=== PATIENT | male | born 1965 | race Caucasian/White ===

== ENCOUNTER 2021-02-13 16:21 | Emergency (ER) | payer MEDICAID ==
[~2021-02-13] VITALS: Ht 177.8 cm; Wt 79.4 kg
--- NOTE | 2021-02-13 16:21 | NUR ---
Placed in room 7 . Placed on manager monitoring, blood pressure machine and pulse oximeter. To gown for exam. Side rails up. Report given to MEENA Loco.
--- NOTE | 2021-02-13 16:21 | NUR ---
Pt came to ER for groin pain states he has hx of hernia, states he is homeless and has had to carry his belongings with him. Pt resting in [facility], rates pain 2/, VSS, awaiting MD.
[2021-02-13 16:24] VITALS: BP_SYST 172
--- NOTE | 2021-02-13 16:30 | NUR ---
LUIS Strong at bedside examining patient.
[2021-02-13] MEDS ORDERED: hydrALAZINE HCL 20 MG/ML VIAL IVP ONE ×2 (16:45→17:45)
[2021-02-13] MEDS ORDERED: NACL 0.9% 1,000 ML IV ONE (16:45)
[2021-02-13 17:02] LABS: BILIRUBIN,URINE NEGATIVE (NEGATIVE); BLOOD, URINE 2+ (NEGATIVE); CLARITY/URINE CLEAR (CLEAR); COLOR,URINE YELLOW (YELLOW); GLUCOSE,URINE NEGATIVE (NEGATIVE); KETONES,URINE NEGATIVE (NEGATIVE); LEUKOCYTE ESTERASE ,URINE NEGATIVE (NEGATIVE); NITRITE, URINE NEGATIVE (NEGATIVE); PROTEIN URINE NEGATIVE (NEGATIVE)
[2021-02-13 17:11] LABS: BACTERIA,URINE FEW /HPF (None Seen); MUCUS,URINE None Seen /LPF (None Seen); WBC,URINE 0-3 /HPF (0-3)
[2021-02-13 17:14] LABS: BARBITURATE, URINE NEGATIVE (NEG <=200); BENZODIAZEPINE, URINE NEGATIVE (NEG <=150); CANNABINOID, URINE NEGATIVE (NEG <=50); COCAINE, URINE NEGATIVE (NEG <=150); METHAMPHETAMINES SCREEN,URINE NEGATIVE (NEG <=500); OPIATE, URINE NEGATIVE (NEG <=100); PHENCYCLIDINE SCREEN,URINE NEGATIVE (NEG <=25); UR TRICYCLIC ANTIDEPRESSANTS NEGATIVE (NEG <=300); URINE AMPHETAMINE NEGATIVE (NEG <=500); URINE METHADONE NEGATIVE (NEG <=200); URINE OXYCODONE SCREEN NEGATIVE (NEG <=100); URINE PROPOXYPHENE SCREEN NEGATIVE (NEG <=300)
[2021-02-13 17:15] LABS: ANION GAP 8 (5-15); CALCIUM 9.9 mg/dL (8.4-11.0); CHLORIDE 107 mmol/L (98-107); CREATININE 0.93 mg/dL (0.55-1.30); GLUCOSE 96 mg/dL (70-99); POTASSIUM 4.1 mmol/L (3.5-5.1); SODIUM SERUM 140 mmol/L (136-145); UREA NITROGEN, BLOOD 20 mg/dL (8-21)
[2021-02-13 17:18] LABS: BASOPHILS % (AUTO) 0.5 % (0.0-2.0); EOSINOPHILS # (AUTO) 0.1 K/uL (0.0-0.4); EOSINOPHILS % (AUTO) 0.9 % (0.0-4.0); HEMATOCRIT 45.6 % (36-54); HEMOGLOBIN 14.7 g/dL (14.0-18.0); LYMPHOCYTES # (AUTO) 1.6 K/uL (1.0-5.5); LYMPHOCYTES % (AUTO) 20.3 % (20.5-51.5); MEAN CORPUSCULAR HEMOGLOBIN 29 pg (27-31); MEAN CORPUSCULAR HGB CONC 32 % (32-36); MEAN CORPUSCULAR VOLUME 91 fL (79.0-98.0); MONOCYTES # (AUTO) 0.8 K/uL (0.0-1.0); MONOCYTES % (AUTO) 10.7 % (1.7-9.3); NEUTROPHILS # (AUTO) 5.2 K/uL (1.8-7.7); NEUTROPHILS % (AUTO) 67.6 % (40.0-70.0); PLATELET COUNT (AUTO) 147 K/uL (130-430); RED BLOOD CELL COUNT(AUTO) 4.99 MIL/uL (4.2-6.2); RED CELL DISTRIBUTION WIDTH 14.3 % (9.0-15.0); WHITE BLOOD COUNT (AUTO) 7.7 K/uL (4.8-10.8)
[2021-02-13 17:23] LABS: ALANINE AMINOTRANSFERASE 46 U/L (12-78); ALBUMIN 3.6 g/dL (3.4-4.8); ASPARTATE AMINOTRANSFERASE 31 U/L (10-37); LIPASE 171 U/L (73-393); TOTAL BILIRUBIN 0.8 mg/dL (0.0-1.0)
[2021-02-13 17:24] LABS: ALCOHOL, BLOOD < 3 mg/dL (<10); GFR AFRICAN AMERICAN 108 mL/min (>90)
[2021-02-13] MEDS ORDERED: hydrALAZINE HCL 20 MG/ML VIAL ONE (17:54)
--- NOTE | 2021-02-13 18:32 | NUR ---
Pt resting in [facility] comfortably at this time, VSS, watching movie on phone
[2021-02-13] MEDS ORDERED: ATEN-41 PO (18:57)
[2021-02-13 19:08] VITALS: BP_SYST 136
--- NOTE | 2021-02-13 19:09 | NUR ---
Patient given written and verbal discharge instructions and verbalizes understanding. Given copies of tests performed during visit. Patient is awake, alert and oriented. Ambulatory with steady gait. Refuses offer of penitentiary placement. Given list of available shelters in surrounding areas.
--- NOTE | 2021-02-13 19:09 | NUR ---
Patient given written and verbal discharge instructions and verbalizes understanding. ER MD discussed with patient the results and treatment provided. Patient in stable condition. ID arm band removed. IV catheter removed intact and dressing applied, no active bleeding. Rx of Atenolol given. Patient educated on pain management and to follow up with PMD. Pain Scale 0/10. Opportunity for questions provided and answered. Medication side effect fact sheet provided.
== END 2021-02-13 19:09 | disposition home or self-care (01) ==
LOC: SED 16:21
DX: K40.20 Bilateral inguinal hernia, without obstruction or gangrene, not specified as recurrent (principal); I10 Essential (primary) hypertension; F10.20 Alcohol dependence, uncomplicated; Y90.0 Blood alcohol level of less than 20 mg/100 ml; Z59.0 Homelessness
CPT/HCPCS: 36415; 71045; 80053; 80307; 81000; 83690; 83880; 84484; 85025; 93005; 96361; 96374; 96376; 99285; G0482; J0360; J7030

== ENCOUNTER 2021-06-03 18:08 | Emergency (ER) | payer MEDICAID, SELFPAY ==
[~2021-06-03] VITALS: Ht 180.3 cm; Wt 81.6 kg
[~2021-06-03 18:08] MED LIST: ATEN-41 PO
[2021-06-03 18:50] VITALS: BP_SYST 151
--- NOTE | 2021-06-03 18:58 | NUR ---
PLACED IN WAITING ROOM FOR AVAILABLE BED IN MAIN ED
--- NOTE | 2021-06-03 20:05 | NUR ---
Patient ambulatory to bed hallway 1 for evaluation
--- NOTE | 2021-06-03 20:16 | NUR ---
PATIENT AAOX4 AND AMBULATORY FROM HOME C/O RIGHT CHEEK ABCESS X 4\5 DAYS. SWELLING NOTED TO RIGHT CHEEK OF FACE. VSS. CURRENTLY STATING 10/10 ON THE PAIN SCALE. TOOK IBUPROFEN AT HOME WITH NO RELIEF OF PAIN.
--- NOTE | 2021-06-03 22:13 | NUR ---
DR. SINGH AT BEDSIDE FOR EVALUATION.
[2021-06-03] MEDS ORDERED: metroNIDAZOLE 500 mg/NS 100 ML IV ONE (22:30)
[2021-06-03] MEDS ORDERED: NACL 0.9% 1,000 ML IV ONE (22:30)
[2021-06-03] MEDS ORDERED: MORPHINE 4 MG INJ. 4 MG/ML VIAL IVP ONE (22:30)
[2021-06-03] MEDS ORDERED: CLINDAMYCIN 900 mg/50mL D5W 50 ML IV ONE (22:30)
[2021-06-03 23:25] LABS: BASOPHILS % (AUTO) 0.3 % (0.0-2.0); EOSINOPHILS % (AUTO) 0.1 % (0.0-4.0); HEMATOCRIT 39.2 % (36-54); HEMOGLOBIN 13.1 g/dL (14.0-18.0); LYMPHOCYTES % (AUTO) 6.7 % (20.5-51.5); MEAN CORPUSCULAR HEMOGLOBIN 30 pg (27-31); MEAN CORPUSCULAR HGB CONC 33 % (32-36); MEAN CORPUSCULAR VOLUME 91 fL (79.0-98.0); MONOCYTES # (AUTO) 2.1 K/uL (0.0-1.0); MONOCYTES % (AUTO) 14.4 % (1.7-9.3); NEUTROPHILS # (AUTO) 11.5 K/uL (1.8-7.7); NEUTROPHILS % (AUTO) 78.5 % (40.0-70.0); PLATELET COUNT (AUTO) 223 K/uL (130-430); RED BLOOD CELL COUNT(AUTO) 4.33 MIL/uL (4.2-6.2); RED CELL DISTRIBUTION WIDTH 15.4 % (9.0-15.0); WHITE BLOOD COUNT (AUTO) 14.7 K/uL (4.8-10.8)
[2021-06-03 23:38] LABS: CALCIUM 9.8 mg/dL (8.4-11.0); CREATININE 0.92 mg/dL (0.55-1.30); POTASSIUM 3.3 mmol/L (3.5-5.1)
[2021-06-03 23:49] LABS: TOTAL BILIRUBIN 1.1 mg/dL (0.0-1.0)
--- NOTE | 2021-06-04 00:36 | NUR ---
PT TAKEN TO CT SCAN VIA AMBUALTORY ACCOMPANIED BY RADIOLOGIST.
--- NOTE | 2021-06-04 02:30 | NUR ---
COVID SWAB COLLECTED AND SENT TO LAB.
--- NOTE | 2021-06-04 03:25 | NUR ---
PT AMBULATED OUTSIDE FOR FRESH AIR. GAIT STEADY. VSS.
--- NOTE | 2021-06-04 05:23 | NUR ---
Patient resting quietly. No acute distress noted. Vital signs within normal range. AWAITING TO HEAR FROM [place] FOR PLACEMENT.
--- NOTE | 2021-06-04 06:09 | NUR ---
JOY GARCIA GAVE STAFF MIDWIFE/APPRENTICESHIP DIRECTOR TIME WITH [facility] ETA 7AM BLS.
--- NOTE | 2021-06-04 06:18 | NUR ---
Patient to be transferred to [facility]. Is being transferred due to higher level of care. Receiving facility has accepting physician and available space. ER physician has signed transfer form. Patient or responsible green party has agreed to transfer and signed form. Patient belongings inventoried and will be sent with patient. Copy of nursing notes, lab reports, EKG, Physicians Orders and X-rays to be sent with patient. Report called to MEENA ESCALANTE at receiving facility. Receiving physician is DR. RUEDA. [facility] has been called for transfer. ETA is 0700.
[2021-06-04] MEDS ORDERED: ACETAMINOPHEN 500 MG TABLET PO ONE (06:30)
[2021-06-04] MEDS ORDERED: ACETAMINOPHEN 500 MG TABLET ONE (06:36)
--- NOTE | 2021-06-04 07:25 | NUR ---
REPORT GIVEN TO MEENA WAITE WHO WILL ASSUME ALL CARE OF PT.
--- NOTE | 2021-06-04 07:50 | NUR ---
[facility] 15 LEFT FACIAL SWELLING, REPORT CALLED TO [facility] TO MEENA DELCID
[2021-06-04 08:52] VITALS: BP_SYST 132
== END 2021-06-04 08:52 | disposition short-term general hospital (02) ==
LOC: SED 18:08
DX: M27.2 Inflammatory conditions of jaws (principal); I10 Essential (primary) hypertension; Z79.899 Other long term (current) drug therapy; Z20.822 Contact with and (suspected) exposure to COVID-19
CPT/HCPCS: 36415; 70450; 70487; 70491; 76376; 80053; 83605; 85025; 87426; 96365; 96375; 99285; J2270; J3490; Q9967

== ENCOUNTER 2021-12-12 07:22 | Emergency (ER) | payer MEDICAID ==
[~2021-12-12] VITALS: Ht 180.3 cm; Wt 81.6 kg
[2021-12-12 07:32] VITALS: BP_SYST 167
--- NOTE | 2021-12-12 07:38 | NUR ---
Patient to ER bed 7 to gown for evaluation. Side rails up. Report given to JAQUAN/FLOR ROBLEDO.
--- NOTE | 2021-12-12 07:39 | NUR ---
ER at bedside examining patient.
--- NOTE | 2021-12-12 07:45 | NUR ---
PT BIBA FOR RIGHT SIDED RIB PAIN, PT STATES HE FELL WHILE TRYING TO STEP UP A HIGH CURB AND LANDED ON RIGHT SIDE. STATES HE HAS SOME RIGHT SIDED WEAKNESS FROM PREVIOUS CVA "A FEW MONTHS AGO". PT IS AMBULATORY, AAOX4, VSS. PT ALSO HAS BRUISING TO LEFT EYE "FROM A PREVIOUS ISSUE".
--- NOTE | 2021-12-12 08:03 | NUR ---
LAB AT THE BEDSIDE
[2021-12-12 08:17] LABS: BASOPHILS % (AUTO) 0.4 % (0.0-2.0); EOSINOPHILS # (AUTO) 0.1 K/uL (0.0-0.4); HEMATOCRIT 43.9 % (36-54); HEMOGLOBIN 14.5 g/dL (14.0-18.0); LYMPHOCYTES % (AUTO) 16.5 % (20.5-51.5); MEAN CORPUSCULAR HEMOGLOBIN 29 pg (27-31); MEAN CORPUSCULAR HGB CONC 33 % (32-36); MEAN CORPUSCULAR VOLUME 88 fL (79.0-98.0); MONOCYTES # (AUTO) 0.8 K/uL (0.0-1.0); MONOCYTES % (AUTO) 12.5 % (1.7-9.3); NEUTROPHILS # (AUTO) 4.3 K/uL (1.8-7.7); NEUTROPHILS % (AUTO) 69.6 % (40.0-70.0); PLATELET COUNT (AUTO) 173 K/uL (130-430); RED CELL DISTRIBUTION WIDTH 15.6 % (9.0-15.0); WHITE BLOOD COUNT (AUTO) 6.2 K/uL (4.8-10.8)
[2021-12-12 08:26] LABS: CALCIUM 9.6 mg/dL (8.4-11.0); CREATININE 0.85 mg/dL (0.55-1.30); POTASSIUM 3.2 mmol/L (3.5-5.1)
[2021-12-12 08:32] LABS: ALBUMIN 3.7 g/dL (3.4-4.8); TOTAL BILIRUBIN 0.5 mg/dL (0.0-1.0)
--- NOTE | 2021-12-12 09:00 | NUR ---
[employer] TRANS ROUTER Dennise responded to a generated social service support for homelessness. TRANS ROUTER met with patient at bedside. Patient was awake, alert and oriented x4. TRANS ROUTER completed introductions, reason for referral, and provided business card. Patient was open to engagement. Current Concern- Patient is homeless and ready for discharge, need to assess for needs Patient states he is receiving supportive services from [facility], his Housing Navigator is Alejo Haro . TRANS ROUTER provided assistance with his cellphone to contact [employer], patient left a voicemail to notify him he was in the ED. TRANS ROUTER provided patient with resources including information about [facility] for Housing program and offered transportation support. Patient stated he did not want to be transported to a group home, and stated he'd like to be transported to his son Winston Crenshaw's home. TRANS ROUTER informed patient's RN Sun that patient would need taxi to his son's home [address], [place] [address]. TRANS ROUTER also provided RN with homeless waiver and requested for Homeless assessment to be completed. TRANS ROUTER will continue to be available as needed
--- NOTE | 2021-12-12 10:00 | NUR ---
PT AMBULATES WITH STEADY GAIT TO BATHROOM
[2021-12-12] MEDS ORDERED: IBUP-1971 PO (11:26)
[2021-12-12] MEDS ORDERED: HYDR-3917 PO (11:26)
[2021-12-12] MEDS ORDERED: HYDROcodone/ACETAMIN 10-325 MG TAB PO ONE (11:30)
[2021-12-12] MEDS ORDERED: KETOROLAC TROMETHAMINE 60 MG/2 ML VIAL IM ONE (11:30)
--- NOTE | 2021-12-12 11:58 | NUR ---
Patient given written and verbal discharge instructions and verbalizes understanding. Given copies of tests performed during visit. Patient is awake, alert and oriented. Ambulatory with steady gait. Refuses offer of half-way placement. Given list of available shelters in surrounding areas.
[2021-12-12 12:00] VITALS: BP_SYST 167
== END 2021-12-12 12:00 | disposition home or self-care (01) ==
LOC: SED 07:22
DX: S22.41XA Multiple fractures of ribs, right side, initial encounter for closed fracture (principal); S00.83XA Contusion of other part of head, initial encounter; I10 Essential (primary) hypertension; X58.XXXA Exposure to other specified factors, initial encounter; Y93.89 Activity, other specified; Y92.89 Other specified places as the place of occurrence of the external cause; Y99.8 Other external cause status
CPT/HCPCS: 36415; 70450; 71250; 76376; 80053; 85025; 96372; 99284; J1885

== ENCOUNTER 2023-03-21 21:48 | Emergency (ER) | payer MEDICAID ==
[~2023-03-21] VITALS: Ht 177.8 cm; Wt 99.8 kg
[~2023-03-21 21:48] MED LIST changes: +HYDR-3917 PO; +IBUP-1971 PO
[2023-03-21 22:13] VITALS: BP_SYST 162; PULSE 110; RESP 17; TEMP 96.9; O2SAT 98
== END 2023-03-22 03:05 | disposition home or self-care (01) ==
LOC: SED 21:48
DX: F10.129 Alcohol abuse with intoxication, unspecified (principal); E11.9 Type 2 diabetes mellitus without complications; I10 Essential (primary) hypertension; Z79.899 Other long term (current) drug therapy; Y90.6 Blood alcohol level of 120-199 mg/100 ml
CPT/HCPCS: 99283